=== PATIENT | male | born 1970 | race Two or more races ===

== ENCOUNTER 2023-11-29 14:53 | Emergency (ER) | payer OTHER, SELFPAY ==
[2023-11-29 14:58] VITALS: BP 147/86; PULSE 100; RESP 18; TEMP 36.8; O2SAT 98; BMI 30.8
--- NOTE | 2023-11-29 15:08 | ED.GENADUL1 ---
Documented by User: Kingsley Childress MD 11/29/23 20:06 HPI - General Adult General Chief complaint: GI Bleed Stated complaint: BLOOD IN STOOL Time Seen by Provider: 11/29/23 15:02 Source: patient Mode of arrival: walk-in Limitations: no limitations Related Data Home Medications Medication Instructions Recorded Confirmed atorvastatin 80 mg tablet 80 mg PO Q24H 11/29/23 11/29/23 carvedilol 12.5 mg tablet 12.5 mg PO Q12H 11/29/23 11/29/23 clopidogrel 75 mg tablet 75 mg PO Q24H 11/29/23 11/29/23 escitalopram oxalate 20 mg tablet 20 mg PO Q24H 11/29/23 11/29/23 famotidine 20 mg tablet 20 mg PO Q12H 11/29/23 11/29/23 hydroxyzine pamoate 25 mg capsule 25 mg PO Q12H 11/29/23 11/29/23 lisinopril 2.5 mg tablet 2.5 mg PO Q24H 11/29/23 11/29/23 metformin 500 mg tablet,extended 500 mg PO Q12H 11/29/23 11/29/23 release 24 hr mirtazapine 15 mg tablet 15 mg PO Q24H 11/29/23 11/29/23 pantoprazole 40 mg tablet,delayed 40 mg PO Q24H 11/29/23 11/29/23 release Previous Rx's Medication Instructions Recorded hyoscyamine sulfate 0.125 mg 0.125 mg PO Q6H PRN abdominal pain 11/29/23 tablet (Levsin) #12 tabs ondansetron 4 mg disintegrating 4 mg PO Q6H PRN nausea and 11/29/23 tablet vomiting #12 tabs Allergies Allergy/AdvReac Type Severity Reaction Status Date / Time No Known Drug Allergies Allergy Verified 11/29/23 14:58 PFSH PFSH Social History Smoking status: Current every day smoker Exam Constitutional Vital Signs, click to edit/add: Last Vital Signs Temp 98.3 F 11/29/23 14:58 Pulse 100 H 11/29/23 14:58 Resp 18 11/29/23 14:58 BP 147/86 H 11/29/23 14:58 Pulse Ox 98 11/29/23 14:58 Course Vital Signs Vital signs: Vital Signs Temperature 98.3 F 11/29/23 14:58 Pulse Rate 100 H 11/29/23 14:58 Respiratory Rate 18 11/29/23 14:58 Blood Pressure 147/86 H 11/29/23 14:58 Pulse Oximetry 98 11/29/23 14:58 Temperature 98.3 F 11/29/23 14:58 Pulse Rate 100 H 11/29/23 14:58 Respiratory Rate 18 11/29/23 14:58 Blood Pressure 147/86 H 11/29/23 14:58 Pulse Oximetry 98 11/29/23 14:58 Medical Decision Making MDM Narrative Medical decision making narrative: Patient found to have normal hemoglobin, heme positive stool. The remainder of the labs are unremarkable and CT of the abdomen and pelvis shows no evidence of acute process although there is a hyperdensity in the anal lumen which will require colonoscopy to visualize. I discussed the case with Dr. Monte, who will see the patient for follow-up this week to schedule colonoscopy. Patient is hemodynamically stable, abdomen is soft and benign and he was reevaluated by attending physician prior to discharge. IV fluids, Levsin and Zofran given in the ER and patient will be discharged home with Levsin and Zofran. I, Dr Childress, have reviewed the above progress note and course of action in the ER; agree with the above. I have personally seen and evaluated this patient, gone over history and physical, and discussed disposition and treatment plan with the patient. Patient did have a colonoscopy a few years ago. Patient has had his colonoscopies At [facility]. Patient has had blood transfusions in the past, he had a hemoglobin of 4 from upper gastrointestinal bleed and ulcers. Patient will continue taking Plavix. Patient says that he will follow-up with his previous gastrointestinal physician. Patient felt better after IV fluids. No questions at discharge. Patient understands he can follow-up with Dr. Monte as needed as well. Lab Data Labs: Lab Results 11/29/23 Range/Units 15:17 WBC 8.5 (4.0-11.0) 10^3/uL RBC 4.89 (4.70-6.10) 10^6/uL Hgb 14.7 (14.0-18.0) g/dL Hct 43.0 (42.0-54.0) % MCV 87.9 (80.0-94.0) fL MCH 30.1 (25.9-34.0) pg MCHC 34.2 (29.9-35.2) g/dL RDW 12.1 (11.0-15.0) % Plt Count 271 (150-450) 10^3/uL MPV 9.3 L (9.5-13.5) fL Neut % (Auto) 63.2 (43.0-75.0) % Lymph % (Auto) 27.4 (20.5-60.0) % Alcorn % (Auto) 8.1 (1.7-12.0) % Eos % (Auto) 0.7 L (0.9-7.0) % Baso % (Auto) 0.4 (0.2-2.0) % Neut # (Auto) 5.4 (1.4-6.5) 10^3/uL Lymph # (Auto) 2.3 (1.2-3.8) 10^3/uL Alcorn # (Auto) 0.7 (0.3-0.8) 10^3/uL Eos # (Auto) 0.1 (0.0-0.7) 10^3/uL Baso # (Auto) 0.0 (0.0-0.1) 10^3/uL Abs Immat Gran (auto) 0.02 (0.00-0.03) 10^3/uL Imm/Tot Granulo (auto) 0.2 (0.0-0.5) % PT 10.5 (9.0-11.6) sec INR 0.99 APTT 25.8 (22.3-36.2) sec Sodium 132 L (136-145) mmol/L Potassium 4.3 (3.5-5.1) mmol/L Chloride 96 L (98-107) mmol/L Carbon Dioxide 26.1 (21.0-32.0) mmol/L Anion Gap 14.2 BUN 25.0 H (7.0-18.0) mg/dL Creatinine 1.52 H (0.70-1.30) mg/dL Est GFR ( Amer) 58 L (>=60) Est GFR (Non-Af Amer) 48 L (>=60) BUN/Creatinine Ratio 16.4 Glucose 142 H (74-106) mg/dL Calcium 10.1 (8.5-10.1) mg/dL Total Bilirubin 0.9 (0.2-1.0) mg/dL AST 25 (15-37) U/L ALT 33 (16-63) U/L Alkaline Phosphatase 62 (46-116) U/L Total Protein 8.5 H (6.4-8.2) g/dL Albumin 4.2 (3.4-5.0) g/dL Globulin 4.3 g/dL Albumin/Globulin Ratio 1.0 Lipase 51.0 (16.0-77.0) U/L Stool Occult Blood Positive A Imaging Data CT scan - abdomen: Radiologist's impression: ITS Impressions Abdomen/Pelvis CT 11/29/23 15:25 IMPRESSION: 1. No acute intra-abdominal/pelvic findings. 2. Minimal left colonic diverticulosis. 3. Minimal intraluminal anal lumen hyperdensity for which evaluation for acute GI bleed is limited given single phase examination. Electronically authenticated by: JENNIFER TOLBERT Date: 11/29/2023 16:53 Discharge Plan Discharge Chief Complaint: GI Bleed Clinical Impression: Rectal bleeding Patient Disposition: Home, Self-Care Time of Disposition Decision: 17:12 Condition: Good Prescriptions / Home Meds: New hyoscyamine sulfate [Levsin] 0.125 mg tablet 0.125 mg PO Q6H PRN (Reason: abdominal pain) Qty: 12 0RF ondansetron 4 mg tablet,disintegrating 4 mg PO Q6H PRN (Reason: nausea and vomiting) Qty: 12 0RF No Action atorvastatin 80 mg tablet 80 mg PO Q24H carvedilol 12.5 mg tablet 12.5 mg PO Q12H clopidogrel 75 mg tablet 75 mg PO Q24H escitalopram oxalate 20 mg tablet 20 mg PO Q24H famotidine 20 mg tablet 20 mg PO Q12H hydroxyzine pamoate 25 mg capsule 25 mg PO Q12H lisinopril 2.5 mg tablet 2.5 mg PO Q24H metformin 500 mg tablet extended release 24 hr 500 mg PO Q12H mirtazapine 15 mg tablet 15 mg PO Q24H pantoprazole 40 mg tablet,delayed release (DR/EC) 40 mg PO Q24H Instructions: Rectal Bleeding (ED) Stand Alone Forms: Portal Instructions Referrals: Jose Monte MD [Physician] - 1 week Mack Yanez [Primary Care Provider] - 1 week Discharge Date/Time: 11/29/23 17:19 Documented by User: DEREJE Saeed 11/29/23 17:13 HPI - General Adult General Chief complaint: GI Bleed Stated complaint: BLOOD IN STOOL Time Seen by Provider: 11/29/23 15:02 Related Data Home Medications Medication Instructions Recorded Confirmed atorvastatin 80 mg tablet 80 mg PO Q24H 11/29/23 11/29/23 carvedilol 12.5 mg tablet 12.5 mg PO Q12H 11/29/23 11/29/23 clopidogrel 75 mg tablet 75 mg PO Q24H 11/29/23 11/29/23 escitalopram oxalate 20 mg tablet 20 mg PO Q24H 11/29/23 11/29/23 famotidine 20 mg tablet 20 mg PO Q12H 11/29/23 11/29/23 hydroxyzine pamoate 25 mg capsule 25 mg PO Q12H 11/29/23 11/29/23 lisinopril 2.5 mg tablet 2.5 mg PO Q24H 11/29/23 11/29/23 metformin 500 mg tablet,extended 500 mg PO Q12H 11/29/23 11/29/23 release 24 hr mirtazapine 15 mg tablet 15 mg PO Q24H 11/29/23 11/29/23 pantoprazole 40 mg tablet,delayed 40 mg PO Q24H 11/29/23 11/29/23 release Previous Rx's Medication Instructions Recorded hyoscyamine sulfate 0.125 mg 0.125 mg PO Q6H PRN abdominal pain 11/29/23 tablet (Levsin) #12 tabs ondansetron 4 mg disintegrating 4 mg PO Q6H PRN nausea and 11/29/23 tablet vomiting #12 tabs Allergies Allergy/AdvReac Type Severity Reaction Status Date / Time No Known Drug Allergies Allergy Verified 11/29/23 14:58 PFSH PFS Social History Smoking status: Current every day smoker Exam Constitutional Vital Signs, click to edit/add: Last Vital Signs Temp 98.3 F 11/29/23 14:58 Pulse 100 H 11/29/23 14:58 Resp 18 11/29/23 14:58 BP 147/86 H 11/29/23 14:58 Pulse Ox 98 11/29/23 14:58 Course Vital Signs Vital signs: Vital Signs Temperature 98.3 F 11/29/23 14:58 Pulse Rate 100 H 11/29/23 14:58 Respiratory Rate 18 11/29/23 14:58 Blood Pressure 147/86 H 11/29/23 14:58 Pulse Oximetry 98 11/29/23 14:58 Temperature 98.3 F 11/29/23 14:58 Pulse Rate 100 H 11/29/23 14:58 Respiratory Rate 18 11/29/23 14:58 Blood Pressure 147/86 H 11/29/23 14:58 Pulse Oximetry 98 11/29/23 14:58 Medical Decision Making [facility] Narrative Medical decision making narrative: Patient found to have normal hemoglobin, heme positive stool. The remainder of the labs are unremarkable and CT of the abdomen and pelvis shows no evidence of acute process although there is a hyperdensity in the anal lumen which will require colonoscopy to visualize. I discussed the case with Dr. Monte, who will see the patient for follow-up this week to schedule colonoscopy. Patient is hemodynamically stable, abdomen is soft and benign and he was reevaluated by attending physician prior to discharge. IV fluids, Levsin and Zofran given in the ER and patient will be discharged home with Levsin and Zofran. Medical Records Medical records reviewed: Yes I reviewed the patient's medical records Lab Data Lab results reviewed: Yes I reviewed the patient's lab results Labs: Lab Results 11/29/23 Range/Units 15:17 WBC 8.5 (4.0-11.0) 10^3/uL RBC 4.89 (4.70-6.10) 10^6/uL Hgb 14.7 (14.0-18.0) g/dL Hct 43.0 (42.0-54.0) % MCV 87.9 (80.0-94.0) fL MCH 30.1 (25.9-34.0) pg MCHC 34.2 (29.9-35.2) g/dL RDW 12.1 (11.0-15.0) % Plt Count 271 (150-450) 10^3/uL MPV 9.3 L (9.5-13.5) fL Neut % (Auto) 63.2 (43.0-75.0) % Lymph % (Auto) 27.4 (20.5-60.0) % Alcorn % (Auto) 8.1 (1.7-12.0) % Eos % (Auto) 0.7 L (0.9-7.0) % Baso % (Auto) 0.4 (0.2-2.0) % Neut # (Auto) 5.4 (1.4-6.5) 10^3/uL Lymph # (Auto) 2.3 (1.2-3.8) 10^3/uL Alcorn # (Auto) 0.7 (0.3-0.8) 10^3/uL Eos # (Auto) 0.1 (0.0-0.7) 10^3/uL Baso # (Auto) 0.0 (0.0-0.1) 10^3/uL Abs Immat Gran (auto) 0.02 (0.00-0.03) 10^3/uL Imm/Tot Granulo (auto) 0.2 (0.0-0.5) % PT 10.5 (9.0-11.6) sec INR 0.99 APTT 25.8 (22.3-36.2) sec Sodium 132 L (136-145) mmol/L Potassium 4.3 (3.5-5.1) mmol/L Chloride 96 L (98-107) mmol/L Carbon Dioxide 26.1 (21.0-32.0) mmol/L Anion Gap 14.2 BUN 25.0 H (7.0-18.0) mg/dL Creatinine 1.52 H (0.70-1.30) mg/dL Est GFR ( Amer) 58 L (>=60) Est GFR (Non-Af Amer) 48 L (>=60) BUN/Creatinine Ratio 16.4 Glucose 142 H (74-106) mg/dL Calcium 10.1 (8.5-10.1) mg/dL Total Bilirubin 0.9 (0.2-1.0) mg/dL AST 25 (15-37) U/L ALT 33 (16-63) U/L Alkaline Phosphatase 62 (46-116) U/L Total Protein 8.5 H (6.4-8.2) g/dL Albumin 4.2 (3.4-5.0) g/dL Globulin 4.3 g/dL Albumin/Globulin Ratio 1.0 Lipase 51.0 (16.0-77.0) U/L Stool Occult Blood Positive A Imaging Data CT scan - abdomen: Attestation: I have reviewed the pertinent imaging results. Radiologist's impression: ITS Impressions Abdomen/Pelvis CT 11/29/23 15:25
--- NOTE | 2023-11-29 15:25 | CT_ITS ---
[address] [address] Patient Name: ANDREI BARRERA MRN: [id number] date: 1970 Sex: M Assigned Patient Location: ER Current Patient Location: ER Accession/Order Number: [id number] Exam Date: 11/29/2023 16:06 Report Date: 11/29/2023 16:53 At the request of: NAIMA CHANEY Procedure: CT abdomen pelvis w con EXAM: CT abdomen pelvis w con HISTORY: Rectal bleeding, abdominal pain TECHNIQUE: Single portal venous phase CT of abdomen/pelvis with IV contrast. Dose reduction techniques performed. COMPARISON: 09/15/2021 FINDINGS: Fisheries Inspector: No pertinent findings, which are not already discussed below. Tubes/lines/drains: None. CHEST: Lungs: Triangular micronodule in the anterior aspect of the right middle lobe, likely peripherally lymph nodes. Bilateral lower lobe small cysts/pneumatoceles. Mediastinum: No cardiomegaly or significant pericardial effusion. Consecutive right coronary artery calcifications. Small hiatal hernia. ABDOMEN: Liver: 2 unchanged hypodensities within the right hepatic lobe measuring up to 1.3 cm, noncystic attenuation although likely benign given stability. Additional left hepatic lobe cyst. Gallbladder and Biliary Tree: Unremarkable. Spleen: Unremarkable. Pancreas: Unremarkable. Adrenal Glands: Unremarkable. Kidneys, Ureters, Bladder: Atrophic right kidney with multifocal scarring again noted. A few small left-sided simple renal cysts. No concerning renal lesions. No urolithiasis. No hydronephrosis or hydroureterosis. Unremarkable bladder. Gastrointestinal: Minimal left colonic diverticulosis. Minimal intraluminal hyperdensity within the anal canal. No mural thickening or inflammatory changes. No dilated loops of small or large bowel. Normal appendix. No free air or free fluid. Reproductive organ(s): Unremarkable. Lymphatic: Unremarkable. Vessels: Mild atherosclerotic calcifications. Retroaortic left renal vein. BONES AND SOFT TISSUE: Bones: No acute fracture. No concerning osseous lesions. Chronic moderate L1 compression deformity unchanged. Transitional lumbosacral anatomy Soft Tissue: Small fat-containing umbilical hernia. Small amount of fat within the bilateral inguinal canals. CT/CT abdomen pelvis w con IMPRESSION: 1. No acute intra-abdominal/pelvic findings. 2. Minimal left colonic diverticulosis. 3. Minimal intraluminal anal lumen hyperdensity for which evaluation for acute GI bleed is limited given single phase examination. Electronically authenticated by: JENNIFER TOLBERT Date: 11/29/2023 16:53
--- NOTE | 2023-11-29 15:26 | ED.GIBLEED1 ---
Documented by User: DEREJE Saeed 11/29/23 17:08 HPI - GI Bleed General Chief complaint: GI Bleed Stated complaint: BLOOD IN STOOL Time Seen by Provider: 11/29/23 15:02 Source: patient Mode of arrival: walk-in Limitations: no limitations History of Present Illness HPI Narrative: Patient is a 53-year-old male who presents to the emergency room for the evaluation of rectal bleeding for the last 6 days. Patient states he has noticed bright red blood per rectum that is now darker. He states yesterday he had less bleeding and a normal bowel movement but today has just noted bleeding again. He is not passing clots. He is on Plavix daily. He denies fevers. He does not complain chest pain or shortness of breath but states he feels generally fatigued and weak. He reports pain in the low abdomen, no urinary symptoms. He denies any history of inflammatory bowel conditions. No previous abdominal surgeries. Related Data Home Medications Medication Instructions Recorded Confirmed atorvastatin 80 mg tablet 80 mg PO Q24H 11/29/23 11/29/23 carvedilol 12.5 mg tablet 12.5 mg PO Q12H 11/29/23 11/29/23 clopidogrel 75 mg tablet 75 mg PO Q24H 11/29/23 11/29/23 escitalopram oxalate 20 mg tablet 20 mg PO Q24H 11/29/23 11/29/23 famotidine 20 mg tablet 20 mg PO Q12H 11/29/23 11/29/23 hydroxyzine pamoate 25 mg capsule 25 mg PO Q12H 11/29/23 11/29/23 lisinopril 2.5 mg tablet 2.5 mg PO Q24H 11/29/23 11/29/23 metformin 500 mg tablet,extended 500 mg PO Q12H 11/29/23 11/29/23 release 24 hr mirtazapine 15 mg tablet 15 mg PO Q24H 11/29/23 11/29/23 pantoprazole 40 mg tablet,delayed 40 mg PO Q24H 11/29/23 11/29/23 release Previous Rx's Medication Instructions Recorded hyoscyamine sulfate 0.125 mg 0.125 mg PO Q6H PRN abdominal pain 11/29/23 tablet (Levsin) #12 tabs ondansetron 4 mg disintegrating 4 mg PO Q6H PRN nausea and 11/29/23 tablet vomiting #12 tabs Allergies Allergy/AdvReac Type Severity Reaction Status Date / Time No Known Drug Allergies Allergy Verified 11/29/23 14:58 Review of Systems ROS Constitutional Denies: fever or chills Eyes Denies: change in vision Cardiovascular Denies: chest pain Respiratory Denies: shortness of breath Gastrointestinal Reports: abdominal pain and blood in stool; Denies: nausea, vomiting or diarrhea Musculoskeletal Denies: back pain Integumentary/Breast Denies: rash Neurological Denies: headache PFSH PFSH Social History Smoking status: Current every day smoker Exam Narrative Exam Narrative: Gen.: Awake, alert, in no distress Head: Normocephalic, atraumatic ENT: Moist mucous membranes Respiratory: No respiratory distress Gastrointestinal: Abdomen is soft, nondistended and nontender to palpation Rectal: Rectal exam performed with Yennifer Miller RN at bedside throughout the duration of the exam. There are no external hemorrhoids noted, no active bleeding per rectum and dark brown stool obtained during rectal exam Extremities: Moves extremities equally Psych: Normal mood and affect Neuro: No focal neuro deficit Skin: Warm, dry, intact Constitutional Vital Signs, click to edit/add: Last Vital Signs Temp 98.3 F 11/29/23 14:58 Pulse 100 H 11/29/23 14:58 Resp 18 11/29/23 14:58 BP 147/86 H 11/29/23 14:58 Pulse Ox 98 11/29/23 14:58 Course Vital Signs Vital signs: Vital Signs Temperature 98.3 F 11/29/23 14:58 Pulse Rate 100 H 11/29/23 14:58 Respiratory Rate 18 11/29/23 14:58 Blood Pressure 147/86 H 11/29/23 14:58 Pulse Oximetry 98 11/29/23 14:58 Temperature 98.3 F 11/29/23 14:58 Pulse Rate 100 H 11/29/23 14:58 Respiratory Rate 18 11/29/23 14:58 Blood Pressure 147/86 H 11/29/23 14:58 Pulse Oximetry 98 11/29/23 14:58 MDM - GI Bleed MDM Narrative Medical decision making narrative: Patient's vital signs are unremarkable, abdomen is soft and benign and lab studies show hemoglobin of 14.7. The remainder of the lab studies with no evidence of acute abnormalities, CT of the abdomen and pelvis performed showing a minimal anal lumen hyperdensity, this will need to be evaluated on colonoscopy, there is no other abnormality noted. I discussed the case with Lab Data Labs: Lab Results 11/29/23 Range/Units 15:17 WBC 8.5 (4.0-11.0) 10^3/uL RBC 4.89 (4.70-6.10) 10^6/uL Hgb 14.7 (14.0-18.0) g/dL Hct 43.0 (42.0-54.0) % MCV 87.9 (80.0-94.0) fL MCH 30.1 (25.9-34.0) pg MCHC 34.2 (29.9-35.2) g/dL RDW 12.1 (11.0-15.0) % Plt Count 271 (150-450) 10^3/uL MPV 9.3 L (9.5-13.5) fL Neut % (Auto) 63.2 (43.0-75.0) % Lymph % (Auto) 27.4 (20.5-60.0) % [place] % (Auto) 8.1 (1.7-12.0) % Eos % (Auto) 0.7 L (0.9-7.0) % Baso % (Auto) 0.4 (0.2-2.0) % Neut # (Auto) 5.4 (1.4-6.5) 10^3/uL Lymph # (Auto) 2.3 (1.2-3.8) 10^3/uL [place] # (Auto) 0.7 (0.3-0.8) 10^3/uL Eos # (Auto) 0.1 (0.0-0.7) 10^3/uL Baso # (Auto) 0.0 (0.0-0.1) 10^3/uL Abs Immat Gran (auto) 0.02 (0.00-0.03) 10^3/uL Imm/Tot Granulo (auto) 0.2 (0.0-0.5) % PT 10.5 (9.0-11.6) sec INR 0.99 APTT 25.8 (22.3-36.2) sec Sodium 132 L (136-145) mmol/L Potassium 4.3 (3.5-5.1) mmol/L Chloride 96 L (98-107) mmol/L Carbon Dioxide 26.1 (21.0-32.0) mmol/L Anion Gap 14.2 BUN 25.0 H (7.0-18.0) mg/dL Creatinine 1.52 H (0.70-1.30) mg/dL Est GFR ( Amer) 58 L (>=60) Est GFR (Non-Af Amer) 48 L (>=60) BUN/Creatinine Ratio 16.4 Glucose 142 H (74-106) mg/dL Calcium 10.1 (8.5-10.1) mg/dL Total Bilirubin 0.9 (0.2-1.0) mg/dL AST 25 (15-37) U/L ALT 33 (16-63) U/L Alkaline Phosphatase 62 (46-116) U/L Total Protein 8.5 H (6.4-8.2) g/dL Albumin 4.2 (3.4-5.0) g/dL Globulin 4.3 g/dL Albumin/Globulin Ratio 1.0 Lipase 51.0 (16.0-77.0) U/L Stool Occult Blood Positive A Discharge Plan Discharge Chief Complaint: GI Bleed Clinical Impression: Rectal bleeding Patient Disposition: Home, Self-Care Time of Disposition Decision: 17:12 Condition: Good Prescriptions / Home Meds: New hyoscyamine sulfate [Levsin] 0.125 mg tablet 0.125 mg PO Q6H PRN (Reason: abdominal pain) Qty: 12 0RF ondansetron 4 mg tablet,disintegrating 4 mg PO Q6H PRN (Reason: nausea and vomiting) Qty: 12 0RF No Action atorvastatin 80 mg tablet 80 mg PO Q24H carvedilol 12.5 mg tablet 12.5 mg PO Q12H clopidogrel 75 mg tablet 75 mg PO Q24H escitalopram oxalate 20 mg tablet 20 mg PO Q24H famotidine 20 mg tablet 20 mg PO Q12H hydroxyzine pamoate 25 mg capsule 25 mg PO Q12H lisinopril 2.5 mg tablet 2.5 mg PO Q24H metformin 500 mg tablet extended release 24 hr 500 mg PO Q12H mirtazapine 15 mg tablet 15 mg PO Q24H pantoprazole 40 mg tablet,delayed release (DR/EC) 40 mg PO Q24H Instructions: Rectal Bleeding (ED) Stand Alone Forms: Portal Instructions Referrals: Jose Monte MD [Physician] - 1 week Mack Yanez [Primary Care Provider] - 1 week Discharge Date/Time: 11/29/23 17:19 Documented by User: Kingsley Childress MD 11/29/23 20:11 HPI - GI Bleed General Chief complaint: GI Bleed Stated complaint: BLOOD IN STOOL Time Seen by Provider: 11/29/23 15:02 Related Data Home Medications Medication Instructions Recorded Confirmed atorvastatin 80 mg tablet 80 mg PO Q24H 11/29/23 11/29/23 carvedilol 12.5 mg tablet 12.5 mg PO Q12H 11/29/23 11/29/23 clopidogrel 75 mg tablet 75 mg PO Q24H 11/29/23 11/29/23 escitalopram oxalate 20 mg tablet 20 mg PO Q24H 11/29/23 11/29/23 famotidine 20 mg tablet 20 mg PO Q12H 11/29/23 11/29/23 hydroxyzine pamoate 25 mg capsule 25 mg PO Q12H 11/29/23 11/29/23 lisinopril 2.5 mg tablet 2.5 mg PO Q24H 11/29/23 11/29/23 metformin 500 mg tablet,extended 500 mg PO Q12H 11/29/23 11/29/23 release 24 hr mirtazapine 15 mg tablet 15 mg PO Q24H 11/29/23 11/29/23 pantoprazole 40 mg tablet,delayed 40 mg PO Q24H 11/29/23 11/29/23 release Previous Rx's Medication Instructions Recorded hyoscyamine sulfate 0.125 mg 0.125 mg PO Q6H PRN abdominal pain 11/29/23 tablet (Levsin) #12 tabs ondansetron 4 mg disintegrating 4 mg PO Q6H PRN nausea and 11/29/23 tablet vomiting #12 tabs Allergies Allergy/AdvReac Type Severity Reaction Status Date / Time No Known Drug Allergies Allergy Verified 11/29/23 14:58 Review of Systems ROS Narrative All systems are negative except as noted/marked. All systems reviewed and otherwise negative. PFSH PFSH Social History Smoking status: Current every day smoker Exam Constitutional Vital Signs, click to edit/add: Last Vital Signs Temp 98.3 F 11/29/23 14:58 Pulse 100 H 11/29/23 14:58 Resp 18 11/29/23 14:58 BP 147/86 H 11/29/23 14:58 Pulse Ox 98 11/29/23 14:58 Course Vital Signs Vital signs: Vital Signs Temperature 98.3 F 11/29/23 14:58 Pulse Rate 100 H 11/29/23 14:58 Respiratory Rate 18 11/29/23 14:58 Blood Pressure 147/86 H 11/29/23 14:58 Pulse Oximetry 98 11/29/23 14:58 Temperature 98.3 F 11/29/23 14:58 Pulse Rate 100 H 11/29/23 14:58 Respiratory Rate 18 11/29/23 14:58 Blood Pressure 147/86 H 11/29/23 14:58 Pulse Oximetry 98 11/29/23 14:58 MDM - GI Bleed MDM Narrative Medical decision making narrative: Patient's vital signs are unremarkable, abdomen is soft and benign and lab studies show hemoglobin of 14.7. The remainder of the lab studies with no evidence of acute abnormalities, CT of the abdomen and pelvis performed showing a minimal anal lumen hyperdensity, this will need to be evaluated on colonoscopy, there is no other abnormality noted. I discussed the case with . I, Dr Childress, have reviewed the above progress note and course of action in the ER; agree with the above. I have personally seen and evaluated this patient, gone over history and physical, and discussed disposition and treatment plan with the patient. 2 charts were accidentally created on this patient. See Both charts for documentation. Lab Data Labs: Lab Results 11/29/23 Range/Units 15:17 WBC 8.5 (4.0-11.0) 10^3/uL RBC 4.89 (4.70-6.10) 10^6/uL Hgb 14.7 (14.0-18.0) g/dL Hct 43.0 (42.0-54.0) % MCV 87.9 (80.0-94.0) fL MCH 30.1 (25.9-34.0) pg MCHC 34.2 (29.9-35.2) g/dL RDW 12.1 (11.0-15.0) % Plt Count 271 (150-450) 10^3/uL MPV 9.3 L (9.5-13.5) fL Neut % (Auto) 63.2 (43.0-75.0) % Lymph % (Auto) 27.4 (20.5-60.0) % [place] % (Auto) 8.1 (1.7-12.0) % Eos % (Auto) 0.7 L (0.9-7.0) % Baso % (Auto) 0.4 (0.2-2.0) % Neut # (Auto) 5.4 (1.4-6.5) 10^3/uL Lymph # (Auto) 2.3 (1.2-3.8) 10^3/uL [place] # (Auto) 0.7 (0.3-0.8) 10^3/uL Eos # (Auto) 0.1 (0.0-0.7) 10^3/uL Baso # (Auto) 0.0 (0.0-0.1) 10^3/uL Abs Immat Gran (auto) 0.02 (0.00-0.03) 10^3/uL Imm/Tot Granulo (auto) 0.2 (0.0-0.5) % PT 10.5 (9.0-11.6) sec INR 0.99 APTT 25.8 (22.3-36.2) sec Sodium 132 L (136-145) mmol/L Potassium 4.3 (3.5-5.1) mmol/L Chloride 96 L (98-107) mmol/L Carbon Dioxide 26.1 (21.0-32.0) mmol/L Anion Gap 14.2 BUN 25.0 H (7.0-18.0) mg/dL Creatinine 1.52 H (0.70-1.30) mg/dL Est GFR ( Amer) 58 L (>=60) Est GFR (Non-Af Amer) 48 L (>=60) BUN/Creatinine Ratio 16.4 Glucose 142 H (74-106) mg/dL Calcium 10.1 (8.5-10.1) mg/dL Total Bilirubin 0.9 (0.2-1.0) mg/dL AST 25 (15-37) U/L ALT 33 (16-63) U/L Alkaline Phosphatase 62 (46-116) U/L Total Protein 8.5 H (6.4-8.2) g/dL Albumin 4.2 (3.4-5.0) g/dL Globulin 4.3 g/dL Albumin/Globulin Ratio 1.0 Lipase 51.0 (16.0-77.0) U/L Stool Occult Blood Positive A Discharge Plan Discharge Chief Complaint: GI Bleed Clinical Impression: Rectal bleeding Patient Disposition: Home, Self-Care Time of Disposition Decision: 17:12 Condition: Good Prescriptions / Home Meds: New hyoscyamine sulfate [Levsin] 0.125 mg tablet 0.125 mg PO Q6H PRN (Reason: abdominal pain) Qty: 12 0RF ondansetron 4 mg tablet,disintegrating 4 mg PO Q6H PRN (Reason: nausea and vomiting) Qty: 12 0RF No Action atorvastatin 80 mg tablet 80 mg PO Q24H carvedilol 12.5 mg tablet 12.5 mg PO Q12H clopidogrel 75 mg tablet 75 mg PO Q24H escitalopram oxalate 20 mg tablet 20 mg PO Q24H famotidine 20 mg tablet 20 mg PO Q12H hydroxyzine pamoate 25 mg capsule 25 mg PO Q12H lisinopril 2.5 mg tablet 2.5 mg PO Q24H metformin 500 mg tablet extended release 24 hr 500 mg PO Q12H mirtazapine 15 mg tablet 15 mg PO Q24H pantoprazole 40 mg tablet,delayed release (DR/EC) 40 mg PO Q24H Instructions: Rectal Bleeding (ED) Stand Alone Forms: Portal Instructions Referrals: Jose Monte MD [Physician] - 1 week Mack Yanez [Primary Care Provider] - 1 week Discharge Date/Time: 11/29/23 17:19
[2023-11-29 15:33] LABS: Basophils Percent Auto 0.4 % (0.2-2.0); Eosinophils Absolute Auto 0.1 10^3/uL (0.0-0.7); Eosinophils Percent Auto 0.7 % (0.9-7.0); Hemoglobin 14.7 g/dL (14.0-18.0); Immature Granulocytes Abs Auto 0.02 10^3/uL (0.00-0.03); Immature Granulocytes Pct Auto 0.2 % (0.0-0.5); Lymphocytes Absolute Auto 2.3 10^3/uL (1.2-3.8); Lymphocytes Percent Auto 27.4 % (20.5-60.0); Mean Corpuscular HGB Conc 34.2 g/dL (29.9-35.2); Mean Corpuscular Hemoglobin 30.1 pg (25.9-34.0); Mean Corpuscular Volume 87.9 fL (80.0-94.0); Mean Platelet Volume 9.3 fL (9.5-13.5); Monocytes Absolute Auto 0.7 10^3/uL (0.3-0.8); Monocytes Percent Auto 8.1 % (1.7-12.0); Neutrophils Absolute Auto 5.4 10^3/uL (1.4-6.5); Neutrophils Percent Auto 63.2 % (43.0-75.0); Occult Blood Positive; Platelet Count 271 10^3/uL (150-450); Red Blood Count 4.89 10^6/uL (4.70-6.10); Red Cell Distribution Width 12.1 % (11.0-15.0); White Blood Count 8.5 10^3/uL (4.0-11.0)
[2023-11-29] MEDS: ONDANSETRON PF 4 MG/2 ML VIAL IV (15:45)
[2023-11-29] MEDS: 0.9 % SODIUM CHLORIDE 1,000 ML 999 ML IV (15:45)
[2023-11-29] MEDS: HYOSCYAMINE SULFATE 0.125 MG TAB.SUBL SL (15:45)
[2023-11-29 15:49] LABS: Alanine Aminotransferase 33 U/L (16-63); Albumin Level 4.2 g/dL (3.4-5.0); Alkaline Phosphatase 62 U/L (46-116); Anion Gap 14.2; Aspartate Amino Transferase 25 U/L (15-37); BUN Creatinine Ratio 16.4; Bilirubin Total 0.9 mg/dL (0.2-1.0); Calcium 10.1 mg/dL (8.5-10.1); Carbon Dioxide 26.1 mmol/L (21.0-32.0); Chloride 96 mmol/L (98-107); Estimated GFR (African America 58 (>=60); Estimated GFR (Non-African Ame 48 (>=60); Globulin 4.3 g/dL; Glucose 142 mg/dL (74-106); Potassium 4.3 mmol/L (3.5-5.1); Sodium 132 mmol/L (136-145); Total Protein 8.5 g/dL (6.4-8.2)
[2023-11-29 15:51] LABS: INR 0.99; Partial Thromboplastin Time 25.8 sec (22.3-36.2); Prothrombin Time 10.5 sec (9.0-11.6)
== END 2023-11-29 17:19 | disposition home or self-care (01) ==
PROVIDERS: Emergency Provider Emergency Medicine; PCP Physician Assistant
DX: K62.5 Hemorrhage of anus and rectum (principal); Z79.02 Long term (current) use of antithrombotics/antiplatelets; Z79.899 Other long term (current) drug therapy; Z79.84 Long term (current) use of oral hypoglycemic drugs; F17.210 Nicotine dependence, cigarettes, uncomplicated
CPT/HCPCS: 36415; 74177; 80053; 83690; 85025; 85610; 85730; 96374; 99285; G0328; J2405; Q9967